=== PATIENT | male | born 1995 | race Caucasian/White ===

== ENCOUNTER 2017-12-11 08:17 | Emergency (ER) | payer SELFPAY ==
[2017-12-11 08:28] VITALS: BP 142/71; PULSE 83; TEMP 98.8; BMI 24.0
--- NOTE | 2017-12-11 08:40 | PDOC ---
History of Present Illness - General Chief Complaint: Injury Stated Complaint: HAND INJURY Time Seen by Provider: 12/11/17 08:32 History Source: Patient Exam Limitations: No Limitations - History of Present Illness Initial Comments: 12/11/17 08:34 punched door last PM, c/o pain and sweling to right hand Occurred: reports: yesterday Severity: reports: mild, moderate Pain Location: reports: upper extremity (right hand ) Method of Injury: Yes: direct blow Modifying Factors: improves with: None Loss of Consciousness: no loss of consciousness Associated Symptoms (Fall): denies symptoms Past History - Travel Traveled outside of the country in the last 30 days: No Close contact w/someone who was outside of country & ill: No - Past Medical History Allergies/Adverse Reactions: Allergies Allergy/AdvReac Type Severity Reaction Status Date / Time No Known Allergies Allergy Verified 12/11/17 08:24 Home Medications: Ambulatory Orders No Home Medications 0 dose .ROUTE UTDICT 03/11/12 COPD: No Other medical history: DENIES. - Immunization History Immunization Up to Date: Yes - Suicide/Smoking/Psychosocial Hx Smoking Status: No Smoking History: Never smoked Number of Cigarettes Smoked Daily: 0 Trauma Specific PMHX - Complaint Specific PMHX Back Injury: No Neck Injury: No Review of Systems - Review of Systems Able to Perform ROS?: Yes Is the patient limited Iraqi proficient: Yes Constitutional: Yes: See HPI. No: Symptoms Reported HEENTM: Yes: See HPI. No: Symptoms Reported Respiratory: Yes: See HPI. No: Symptoms reported Musculoskeletal: Yes: Symptoms Reported, See HPI, Joint Pain, Joint Swelling ( right hand) Integumentary: Yes: See HPI, Bruising All Other Systems: Reviewed and Negative *Physical Exam - Vital Signs Last Vital Signs Temp Pulse Resp BP Pulse Ox 98.8 F 83 17 142/71 97 12/11/17 08:24 12/11/17 08:24 12/11/17 08:24 12/11/17 08:24 12/11/17 08:24 - Physical Exam General Appearance: Yes: Nourished, Appropriately Dressed, Apparent Distress HEENT: positive: SHYANNE, Normal ENT Inspection, Normal Voice, TMs Normal, Pharynx Normal Neck: positive: Supple. negative: Tender Respiratory/Chest: positive: Lungs Clear, Normal Breath Sounds Gastrointestinal/Abdominal: positive: Soft. negative: Tender Musculoskeletal: positive: Normal Inspection Extremity: positive: Normal Capillary Refill. negative: Normal Inspection, Normal Range of Motion (swelling and pain to right distal 4,5th metacarpals ) Integumentary: positive: Normal Color, Ecchymosis, Bruising Neurologic: positive: review engineer II-XII NML intact, Fully Oriented, Alert, Normal Mood/ Affect, Normal Response, Motor Strength /5 ED Treatment Course - RADIOLOGY Radiology Studies Ordered: Category Date Time Status HAND- RIGHT [RAD] Stat Radiology 12/11/17 08:33 Ordered Progress Note - Progress Note Progress Note: X-ray negative for fractures or dislocations, wound was cleaned/debrided from multiple small wood splinters and dressed with bacitracin and Seb wrap. Further discussion reveals patient is upset/tearful regarding issues at home causing him to strike wooden door patient reports that he is safe, denies homicidal suicidal ideation and doesn't have a history of psychiatric issues but states has ultimately things "building up right now". Discussed safe haven in-hospital if feels needs further evaluation or discussion and recommended Rosa Hilliard NP as a psychiatric/therapy alternative. *DC/Admit/Observation/Transfer Diagnosis at time of Disposition: Contusion of hand Qualifiers: Encounter type: initial encounter Laterality: right Qualified Code(s): S60.221A - Contusion of right hand, initial encounter - Discharge Dispostion Disposition: HOME Condition at time of disposition: Stable Decision to Admit order: No - Referrals Referrals: Kaycee Watson MD [Primary Care Provider] - Braydon Otero NP [Nurse Practitioner] - Obey Gann MD [Staff Physician] - - Patient Instructions Printed Discharge Instructions: DI for Contusion Additional Instructions: Rest, ice to area on and off for 15 minutes 4-6 times a day Avoid heavy lifting or exercise until pain and swelling is resolved or until further directed Keep area highly elevated to reduce swelling Use splints/Seb wrap as directed Followup with orthopedist in one to 2 days if not improving, if significantly improved may wait one week for followup with orthopedist May use ibuprofen 2-200 mg tablets every 6 hours as needed for pain Consider discussing issues with Babak Lee NP - Post Discharge Activity Forms/Work/School Notes: Back to Work
[2017-12-11] MEDS ORDERED: IBUPROFEN 600 MG TABLET (FP) PO ONE ×2 (09:00→09:01)
== END 2017-12-11 09:20 | disposition home or self-care (01) ==
LOC: JERFT 08:17
DX: S60.221A Contusion of right hand, initial encounter (principal); W22.8XXA Striking against or struck by other objects, initial encounter; Y93.89 Activity, other specified; Y92.038 Other place in apartment as the place of occurrence of the external cause; Y99.8 Other external cause status
CPT/HCPCS: 73130-TC-RT-FY; 99281-25